=== PATIENT | female | born 1995 | race Two or more races ===

== ENCOUNTER 2017-03-01 20:59 | Emergency (ER) | payer OTHER ==
[~2017-03-01] VITALS: Ht 160 cm; Wt 68.9 kg
[2017-03-01 22:31] LABS: BASO % 0.2 % (0.0-1.0); EOS # 0.4 K/mm3 (0.0-0.50); EOS % 3.1 % (0.0-3.0); LARGE UNSTAINED CELL # 0.2 K/mm3 (0.0-0.4); LARGE UNSTAINED CELL % 1.7 % (0.0-4.0); LYMPH # 3.3 K/mm3 (1.5-6.5); LYMPH % 26.4 % (24.0-44.0); MEAN CORPUSCULAR HEMOGLOBIN 27.7 pg (27.0-33.0); MEAN CORPUSCULAR HGB CONC 32.5 g/dl (32.0-36.5); MEAN CORPUSCULAR VOLUME 85.1 fl (80.0-96.0); MONO # 0.7 K/mm3 (0.0-0.8); MONO % 5.5 % (0.0-5.0); PLATELET COUNT, AUTOMATED 267 k/mm3 (150-450); RED CELL DISTRIBUTION WIDTH 13.2 % (11.5-14.5); WHITE BLOOD COUNT 12.7 K/mm3 (4.0-10.0)
--- NOTE | 2017-03-01 23:20 | REPUSA ---
Clinical history: Pain, Cramping. Findings: Real-time transabdominal and transvaginal ultrasound images of the pelvis were obtained.. T here is a single intrauterine gestation noted. The crown rump length measures 3.0 cm. heart rat e measures 173 bpm. There is no evidence of a subchorionic hemorrhage.. An anteverted uterus is noted ,. The uterus demonstrates normal echotexture and echogenicity. The right ovary measures 3.2 x 1.7 x 2.2 cm. The left ovary measures 3.3 x 3.3 x 2.2 cm. No adnexal masses are seen. Color Doppler flow is seen within both ovaries. There is no evidence of free fluid. Impression: Single live intrauterine measuring 9 weeks 6 days, with estimated due date of 11/28/2016. No gross abnormalities appreciated.
[2017-03-01 23:35] VITALS: BP 101/59
== END 2017-03-01 23:37 | disposition home or self-care (01) ==
LOC: M ED 22:30
DX: O26.891 Other specified pregnancy related conditions, first trimester (principal); Z3A.09 9 weeks gestation of pregnancy

== ENCOUNTER → 2018-06-12 | Outpatient (REF) | payer OTHER | LOC: M SFHCLERA 14:57 | DX: R30.0 Dysuria (principal) ==

== ENCOUNTER 2019-01-03 19:33 | Outpatient (CLI) | payer OTHER ==
[~2019-01-03] VITALS: Ht 160 cm; Wt 82.2 kg
[2019-01-03 20:05] VITALS: BP 95/55
[2019-01-03 20:29] LABS: APPEARANCE, URINE HAZY (CLEAR); BACTERIA, URINE AUTO 1+ (NEGATIVE); BILIRUBIN, URINE AUTO NEGATIVE (NEGATIVE); BLOOD, URINE BLOOD NEGATIVE (NEGATIVE); COLOR, URINE YELLOW (YELLOW); GLUCOSE, URINE (UA) AUTO NEGATIVE (NEGATIVE); KETONE, URINE AUTO NEGATIVE (NEGATIVE); LEUKOCYTE ESTERASE, URINE AUTO 2+ (NEGATIVE); NITRITE, URINE AUTO NEGATIVE (NEGATIVE); PROTEIN, URINE AUTO NEGATIVE (NEGATIVE); RBC, URINE AUTO 3 /HPF (0-3); SPECIFIC GRAVITY URINE AUTO 1.005 (1.002-1.035); SQUAMOUS EPITHELIAL CELL UR AU 6 /HPF (0-6); UROBILINOGEN, URINE AUTO 0.2 mg/dL (0.0-2.0); WBC, URINE AUTO 43 /HPF (0-3)
[2019-01-03] MEDS ORDERED: LR 800 ML IV ONE (20:45)
[2019-01-03] MEDS ORDERED: LR 1,000 ML IV SCH (21:00)
[2019-01-04] MEDS ORDERED: FLUCONAZOLE 50MG TABLET PO ONE (00:15)
== END 2019-01-04 00:45 | disposition home or self-care (01) ==
LOC: M LDO 19:33
PROVIDERS: ATTEND Obstetrics & Gynecology
DX: O26.893 Other specified pregnancy related conditions, third trimester (principal); M54.5 Low back pain; R10.30 Lower abdominal pain, unspecified; O23.43 Unspecified infection of urinary tract in pregnancy, third trimester; O23.593 Infection of other part of genital tract in pregnancy, third trimester; Z3A.29 29 weeks gestation of pregnancy
CPT/HCPCS: 59025; 81001; 87081; 96374; G0378; G0463; J0690

== ENCOUNTER → 2019-01-29 | Outpatient (CLI) | payer OTHER ==
[2019-01-29 18:27] LABS: HEMOGLOBIN 7.4 g/dl (12.0-15.5); MEAN CORPUSCULAR HEMOGLOBIN 22.4 pg (27.0-33.0); MEAN CORPUSCULAR HGB CONC 28.5 g/dl (32.0-36.5); MEAN CORPUSCULAR VOLUME 78.5 fl (80.0-96.0); PLATELET COUNT, AUTOMATED 186 10^3/uL (150-450); RED BLOOD COUNT 3.31 10^6/uL (4.00-5.40)
== END ==
LOC: M SMT 12:15
PROVIDERS: ATTEND Obstetrics & Gynecology
DX: O30.043 Twin pregnancy, dichorionic/diamniotic, third trimester (principal)

== ENCOUNTER 2019-02-06 07:36 | Outpatient (CLI) | payer OTHER ==
[~2019-02-06] VITALS: Ht 160 cm; Wt 82.2 kg
[2019-02-06] VITALS (10 sets, daily range): BP systolic 107–138; BP diastolic 57–79
[2019-02-06] MEDS ORDERED: IRON SUCROSE 500 MG in NS 250 ML OVER 4 HRS IV ONE (08:00)
== END 2019-02-06 15:25 | disposition home or self-care (01) ==
LOC: M INFU 07:36
PROVIDERS: ATTEND Obstetrics & Gynecology
DX: O99.013 Anemia complicating pregnancy, third trimester (principal); Z3A.00 Weeks of gestation of pregnancy not specified
CPT/HCPCS: 96365; 96366; J1756

== ENCOUNTER 2019-02-12 17:02 | Inpatient (IN) | payer OTHER ==
[~2019-02-12] VITALS: Ht 160 cm; Wt 84.3 kg
[2019-02-12] VITALS (19 sets, daily range): BP systolic 79–116; BP diastolic 42–73
[2019-02-12] MEDS ORDERED: PRENTAB9 PO (17:24)
[2019-02-12] MEDS ORDERED: LACTATED RINGER'S 1000 ML IV STA (17:54)
[2019-02-12] MEDS ORDERED: LR 1,000 ML IV SCH (17:54)
[2019-02-12 18:51] LABS: HEMATOCRIT 30.4 % (36.0-47.0); HEMOGLOBIN 8.7 g/dl (12.0-15.5); MEAN CORPUSCULAR HEMOGLOBIN 22.6 pg (27.0-33.0); MEAN CORPUSCULAR HGB CONC 28.6 g/dl (32.0-36.5); PLATELET COUNT, AUTOMATED 237 10^3/uL (150-450); RED BLOOD COUNT 3.85 10^6/uL (4.00-5.40)
[2019-02-12] MEDS ORDERED: FENTANYL 2MCG/ML ROPIVACAINE 0.2% IN 0.9% NACL 100ML IVBAG As Ordered ONE (18:53)
--- NOTE | 2019-02-12 19:13 | HPEPDOC ---
Obstetrical History & Physical General Date of Admission Feb 12, 2019 at 17:46 Primary Care Physician: MORENO NEGRO CNM History of Present Illness Patient is a 23-year-old female who is a who is 34.6 weeks gestation with an VISH of 03/20/19 based off of her LMP and consistent with her first trimester ultrasound. She initiated care in her first trimester with Vicente Prieto CNM and transferred care to [facility] at 32 weeks gestation. Her as been complicated by di/di twin gestation and resolved IUGR of Twin A. She presents to L&D in active labor. She reports contractions and active movement. She denies leaking of fluid or vaginal bleeding. Chief Complaint: Active Labor, Other (di/di twin gestation) Age: 23 : 6 Term: 3 Pre-term: 0 Abortions: 0 Livin Care Care: Good Care Dating Final EDC: March 20, 2019 Final EDC by: LMP LMP: Jun 13, 2018 EGA at Admission: 34.6 Antepartum Course Diagnos(e)s Di/di twin gestation IUGR of Twin A resolved Height (inches): 63 Pre- weight (lbs.): 164 Admission Weight (lbs.): 193 Change in Weight (lbs.): 29 Past Medical History Past Obstetrical History #1: Gestation: 38 Type of Delivery: Spontaneous Vaginal Del. (July 2012) Sex of : Female (weight: 7 lbs 4 oz. ) Complications: No Past Obstetrical History #2: Past Obstetrical History: Multigravida Gestation: 37 Type of Delivery: Spontaneous Vaginal Del. Sex of : Male (6 lbs 7 oz) Complications: No Past Obstetrical History #3: Past Obstetrical History: Multigravida Gestation: 38.6 Type of Delivery: Spontaneous Vaginal Del. 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 , Other (history of molar ) Past Medical History Medical History Anemia: received iron infusion during asthma: has rescue inhaler and rarely uses it Surgical History: Dilatation and Curettage, Tonsilectomy Family History Significant Family History: Diabetes, Heart disease, Hypertension, Renal disease Social History Marital Status: Family situation: Spouse/partner home Psychosocial History: Anxiety (no medications; counseling as a teen) * Smoker: non-smoker Alcohol: Denies Drugs: denies Abuse Violence Screening Have you been hit/kicked/slapp: No Have you been sexually assault: No Allergies Coded Allergies: No Known Allergies (Unverified , 03/01/17) Medications Scheduled Multivitamins/ ( 27-0.8 mg) 1 Tab Tab, 1 TAB PO DAILY Physical Examination Physical Examination GENERAL: Alert and oriented times three. BREAST: . ABDOMEN: Gravid and non-tender to touch. FETUS: Is vertex (VTX) by sterile vaginal examination (SVE), fetus is vertex (VTX) by Cristian. Twin A and Twin B are cephalic by bedside ultrasound. HEART RATE: Regular rate and rhythm. LUNGS: Clear to auscultation (CTA). EXTREMITIES: No edema. No clonus. Deep tendon reflexes (DTRs) + 2. Vital Signs/I&O Vital Signs Date Time Temp Pulse Resp B/P (MAP) Pulse Ox O2 Delivery O2 Flow Rate FiO2 02/12/19 17:20 99.0 101 18 105/61 (76) Laboratory Data 24[facility] Laboratory Tests 2 02/12/19 18:16: Serology Scanned Report Hepatitis B Testing Urine Culture: No Growth Pertinent Laboratoy Data Blood Type: O+ RBC Antibody Screen: Negative HIV: Negative Hepatitis B: Negative Hepatitis C: Negative Rapid Plasma Reagin: Nonreactive Rubella: Immune Chlamydia/Gonorrhea: Negative Group B Streptococcus: Negative Glucose Tolerance Test: 132 Vaginal Examination Dilation: 4 cm Effacement: 90% Station: -1 Cervical Consistency: Soft Cervical Position: Anterior Presentation: Cephalic presentation Position: Vertex (occiput) Assessment Heart Rate (FHR): 130 (Twin A 130/ Twin B 140) Variability: Moderate Accelerations: Positive Decelerations: None Tocometer Contractions: Yes Frequency: regular, every 1-5 min. Strength: palpated as moderate Multi-drug resistant Organism: No history of MDRO Assessment/Plan Assessment Di/di twins at 34.6 weeks gestation active labor Category I FHR tracing GBS negative Plan Admit to L&D. Dr. Dillard made aware of patient being in department. Assessment done by Dr. Dillard also. OOB ad anh. Diet: NPO. Group B Streptococcus (GBS) negative. Labs and intravenous (IV) per unit protocol. Lactated Ringers (LR): Bolus 800 mL, then at 125 mL/hr. Reviewed options for vaginal delivery or section. Reviewed risk of both options and risk that after first vaginal delivery we may have to convert to section. Patient also counseled by Dr. Dillard. Patient has decided to proceed with vaginal delivery. Neonatology notified. Anesthesia consult made for epidural. Anticipate cervical change and . MORENO NEGRO CNM Feb 12, 2019 19:13
[2019-02-12] MEDS ORDERED: EPIDURAL/PCA KEYS XX PRN (21:00)
[2019-02-12] MEDS ORDERED: LACTATED RINGER'S 1000 ML IV PRN (21:00)
[2019-02-12] MEDS ORDERED: ONDANSETRON 4MG/2ML VIAL (J2405) IV PRN (21:00)
[2019-02-12] MEDS ORDERED: NALOXONE INJ 0.4 MG/1 ML VIAL (J2310) IV PRN (21:00)
[2019-02-12] MEDS ORDERED: REFRIGERATOR IV KEYS XX PRN (21:00)
[2019-02-12] MEDS ORDERED: FENTANYL/ROPIVACAINE/NACL BAG 100 ML EPIDURAL SCH (21:00)
[2019-02-12] MEDS ORDERED: ePHEDrine SULFATE 25 MG/5 ML(5MG/ML) SYRINGE IV PRN (21:00)
[2019-02-12] MEDS ORDERED: EPIDURAL COMMENT XX SCH (21:00)
[2019-02-12] MEDS ORDERED: diphenhydrAMINE INJ 50MG/ML VIAL (J1200) IV PRN (21:00)
--- NOTE | 2019-02-12 22:07 | IPNPDOC ---
Obstetrical Progress Note Date of Service Feb 12, 2019 Subjective Patient is comfortable with her epidural. Objective Vital Signs Date Time Temp Pulse Resp B/P (MAP) Pulse Ox O2 Delivery O2 Flow Rate FiO2 02/12/19 20:39 127 18 96/46 (63) 02/12/19 17:20 99.0 Assessment Variability: Moderate Accelerations: Positive Heart Rate Tracing: Category I Tocometer Contractions: Yes Frequency: regular Sterile Vaginal Examination Dilation: 5 cm Effacement (%): 90% Station: 0 Cervical Consistency: Soft Cervical Position: Anterior Postion/Presentation: Cephalic presentation Assessment and Plan EGA at Admission: 34.6 Status: Reassuring Group B Streptococcus: Negative Anticipate: Vaginal Delivery Additional Comments FHR of Twin A is 130 and Twin B is 135; moderate variability, positive accelerations, no decelerations. AROM to a moderate amount of clear fluid. Dr. Dillard in department and available for delivery. Anticipate vaginal delivery. MORENO NEGRO CNM Feb 12, 2019 22:07
[2019-02-12] MEDS ORDERED: OXYTOCIN 30 UNITS IN 0.9% NaCl 500ML IV BAG (J2590) As Ordered ONE (23:28)
[2019-02-13] VITALS (16 sets, daily range): BP systolic 99–118; BP diastolic 51–73
[2019-02-13] MEDS ORDERED: OXYTOCIN DRIP 30 UNITS in APPROPRIATE DILUENT 1 EA IV SCH (01:07)
[2019-02-13] MEDS ORDERED: METHYLERGONOVINE MALEATE 0.2 MG TAB PO PRN (01:15)
[2019-02-13] MEDS ORDERED: MEASLES,MUMPS,RUBELLA VACCINE INJ (MMR-II) (90707) SC SCH (01:15)
[2019-02-13] MEDS ORDERED: DOCUSATE SODIUM 100 MG CAP PO PRN (01:15)
[2019-02-13] MEDS ORDERED: DIBUCAINE 1% OINTMENT 30GM TOP PRN (01:15)
[2019-02-13] MEDS ORDERED: RHOGAM 300 MCG (1500 IU) INJ (J2790) IM SCH (01:15)
[2019-02-13] MEDS ORDERED: ANUSOL HC CREAM 30GM TOP PRN (01:15)
--- NOTE | 2019-02-13 01:36 | DNPDOC ---
[facility] Delivery Note Delivery Note DATE OF DELIVERY: 02/12/19 PREDELIVERY DIAGNOSIS: 34-6/7 weeks' gestation and labor. POST DELIVERY DIAGNOSIS: Delivered. PROCEDURE: Spontaneous vaginal delivery. SECURITY TEAM LEAD: Moreno Tapia CNM, WHNP and Dr. Dillard ANESTHESIA: epidural. ESTIMATED BLOOD LOSS: 200 mL. Then 750 cc . FINDINGS: Twin A: female weighting 2198 grams; 4 lbs 14 oz.; 8/9; delivery Twin B: male weighting 2310 grams; 5 lbs 1 oz; 7/9; delivery DELIVERY SUMMARY: Patient is a 23-year-old female who is now a at 34.6 weeks gestation who presented to L&D in active labor. She received an epidural for pain management. Dr. Dillard present in department and assisted with melanie cowan. Neonatology and anesthesia present during delivery. She progressed to fully dilated at 2321 and pushed to a live delivery of a living female in the NICOLA position with restitution to ROT at 2335. The anterior shoulder delivered with ease and the corpus immediately followed. The baby was active and crying with delivery. The cord was clamped x2 by Dr. Dillard and cut by the FOB. Baby was brought over to the warmer for evaluation. An ultrasound was done at the bedside by Dr. Dillard and Twin B was found to be transverse. Dr. Dillard was able to manually rotate the baby to a cephalic presentation. AROM of twin B was done at 2340 with a moderate amount of clear fluid. She pushed to a living male in the OA position with restitution to NICOLA at 2351. The anterior shoulder delivered with ease and the corpus immediately followed. The cord was clamped x2 and cut by the FOB. The baby was active and crying with delivery and brought over to the warmer. Cord blood was obtained. The placentas delivered spontaneously and intact at 2356. Uterine hemostasis was achieved via rapid infusion of IV Pitocin and fundal massage. The perineum and vagina were inspected and found to be intact. The twins were brought to the NICU due to gestation. Twin A's name is Jennifer and Twin B's name is Ismael. Both babies and mom are in stable condition. Dr. Dillard assisted in all aspects of the delivery including manual rotation of Twin B, sono at bedside, and rupture of Twin B. She received Methergine 10 mg IM and another bag of IV Pitocin for her hemorrhage. MORENO TAPIA CNM Feb 13, 2019 01:36
[2019-02-13] MEDS ORDERED: METHYLERGONOVINE MALEATE 0.2 MG/ML VIAL (J2210) As Ordered ONE (02:33)
[2019-02-13] MEDS: IBUPROFEN 800 MG TAB PO PRN ×4 (02:38→21:38)
[2019-02-13] MEDS ORDERED: METHYLERGONOVINE MALEATE 0.2 MG/ML VIAL (J2210) IM STA (05:33)
[2019-02-13] MEDS ORDERED: PERCOCET 5MG/325MG TAB PO ONE (07:15)
[2019-02-13] MEDS: PRENATAL VITAMINS CHEWABLE TABLET PO SCH (09:00)
[2019-02-13] MEDS: ACETAMINOPHEN 500 MG TAB PO PRN (17:01)
[2019-02-14 02:00] VITALS: BP 129/74
[2019-02-14] MEDS: ACETAMINOPHEN 500 MG TAB PO PRN (02:07)
[2019-02-14 06:00] VITALS: BP 119/68
[2019-02-14] MEDS: PRENATAL VITAMINS CHEWABLE TABLET PO SCH (07:29)
[2019-02-14] MEDS ORDERED: MAPA500T2 PO (08:16)
[2019-02-14] MEDS ORDERED: IBUP-1114 PO (08:16)
== END 2019-02-14 09:05 | disposition home or self-care (01) | DRG 806 ==
LOC: M LDO 17:02 → M LDI 17:46 → M OBS 02-13 07:35
PROVIDERS: ADMIT Advanced Practice Midwife; ATTEND Advanced Practice Midwife
PROC: 10E0XZZ Delivery of Products of Conception, External Approach (ICD-10-PCS; principal; 2019-02-12)
PROC: 10E0XZZ Delivery of Products of Conception, External Approach (ICD-10-PCS; 2019-02-12)
DX: O60.14X0 Preterm labor third trimester with preterm delivery third trimester, not applicable or unspecified (principal); Z37.2 Twins, both liveborn; O72.1 Other immediate postpartum hemorrhage; Z3A.34 34 weeks gestation of pregnancy; O30.043 Twin pregnancy, dichorionic/diamniotic, third trimester

== ENCOUNTER 2019-05-28 20:00 | Emergency (ER) | payer OTHER ==
[~2019-05-28] VITALS: Ht 160 cm; Wt 74.5 kg
[~2019-05-28 20:00] MED LIST: IBUP-1114 PO; MAPA500T2 PO; PRENTAB9 PO
[2019-05-28 20:38] LABS: HEMATOCRIT 38.7 % (36.0-47.0); HEMOGLOBIN 12.2 g/dl (12.0-15.5); MEAN CORPUSCULAR HEMOGLOBIN 26.3 pg (27.0-33.0); MEAN CORPUSCULAR HGB CONC 31.5 g/dl (32.0-36.5); MEAN CORPUSCULAR VOLUME 83.4 fl (80.0-96.0); PLATELET COUNT, AUTOMATED 346 10^3/uL (150-450); RED BLOOD COUNT 4.64 10^6/uL (4.00-5.40); WHITE BLOOD COUNT 12.3 10^3/uL (4.0-10.0)
--- NOTE | 2019-05-28 22:43 | REPVR ---
EXAM: US Left Breast Limited, Abscess Evaluation EXAM DATE/TIME: 05/28/2019 9:03 PM CLINICAL HISTORY: 23 years old, female; Mass, lump, or swelling and nipple discharge (milk-like); Left; Additional info: Lump/nipple drainage. Status post delivery of twins in February. Not breast feeding. TECHNIQUE: Imaging protocol: Left breast ultrasound. Exam limited to the quadrant(s) of clinical concern. Exam focused on the search and evaluation for abscess. Scanning performed at the 1-3 o'clock positions and in the subareolar region. COMPARISON: No relevant prior studies available. FINDINGS: US breast: No visible abscess or mass. Multiple mildly dilated ducts in the subareolar region. IMPRESSION: 1. No evidence of abscess. 2. Dilated subareolar ducts, which could be due to . Recommend clinical management with further assessment as indicated if symptoms persist. Electronically signed by: Herman Lester On 05/28/2019 22:42:44 PM
[2019-05-28 23:24] VITALS: BP 124/96
--- NOTE | 2019-05-30 13:45 | ED PDOC ---
Post-Departure Follow-Up dr barrett faxed formal report of breast us for fu Alexandria Barahona MD May 30, 2019 13:45
== END 2019-05-28 23:25 | disposition home or self-care (01) ==
LOC: M ED 20:00
DX: N61.0 Mastitis without abscess (principal); J45.909 Unspecified asthma, uncomplicated

== ENCOUNTER 2019-06-07 13:46 | Emergency (ER) | payer OTHER ==
[~2019-06-07] VITALS: Ht 160 cm; Wt 78.0 kg
[2019-06-07 14:59] LABS: BASO % 0.3 % (0.0-1.0); EOS # 0.4 10^3/uL (0.0-0.50); EOS % 3.5 % (0.0-3.0); HEMATOCRIT 37.3 % (36.0-47.0); HEMOGLOBIN 11.5 g/dl (12.0-15.5); LYMPH # 2.9 10^3/uL (1.5-6.5); LYMPH % 27.9 % (24.0-44.0); MEAN CORPUSCULAR HEMOGLOBIN 25.6 pg (27.0-33.0); MEAN CORPUSCULAR HGB CONC 30.8 g/dl (32.0-36.5); MEAN CORPUSCULAR VOLUME 83.1 fl (80.0-96.0); MONO # 0.7 10^3/uL (0.0-0.8); MONO % 7.1 % (0.0-5.0); NEUTROPHILS # 6.3 10^3/uL (1.8-7.7); NEUTROPHILS % 60.9 % (36.0-66.0); PLATELET COUNT, AUTOMATED 343 10^3/uL (150-450); RED BLOOD COUNT 4.49 10^6/uL (4.00-5.40); WHITE BLOOD COUNT 10.3 10^3/uL (4.0-10.0)
[2019-06-07] MEDS ORDERED: EXPOSURE KIT-ADULT 7 DAY SUPPLY PO ONE (15:15)
[2019-06-07 15:18] LABS: ALBUMIN 3.9 GM/DL (3.2-5.2); ALT/SGPT 17 U/L (12-78); BILIRUBIN,TOTAL 0.2 MG/DL (0.2-1.0); BLOOD UREA NITROGEN 14 MG/DL (7-18); CARBON DIOXIDE LEVEL 29 MEQ/L (21-32); CHLORIDE LEVEL 106 MEQ/L (98-107); CREATININE FOR GFR 0.85 MG/DL (0.55-1.30); GLOMERULAR FILTRATION RATE > 60.0 (>60); GLUCOSE, FASTING 90 MG/DL (70-100); POTASSIUM SERUM 4.1 MEQ/L (3.5-5.1); SODIUM LEVEL 140 MEQ/L (136-145); TOTAL PROTEIN 7.4 GM/DL (6.4-8.2)
[2019-06-07] MEDS ORDERED: RALT40TA PO (15:29)
[2019-06-07] MEDS ORDERED: TRUVTAB PO (15:29)
[2019-06-07 15:59] VITALS: BP 119/90
[2019-06-08 10:01] LABS: HEPATITIS B SURFACE ANTIBODY NEGATIVE (POSITIVE)
[2019-06-08 10:12] LABS: HEPATITIS B SURFACE ANTIGEN NEGATIVE (NEGATIVE)
[2019-06-08 10:41] LABS: HEPATITIS C VIRUS ABY INDEX 0.1 INDEX (<0.8)
== END 2019-06-07 16:01 | disposition home or self-care (01) ==
LOC: M ED 13:46
DX: Z77.21 Contact with and (suspected) exposure to potentially hazardous body fluids (principal); S61.431A Puncture wound without foreign body of right hand, initial encounter; W26.8XXA Contact with other sharp object(s), not elsewhere classified, initial encounter; Y92.234 Operating room of hospital as the place of occurrence of the external cause; Y99.0 Civilian activity done for income or pay

== ENCOUNTER → 2019-08-31 | Outpatient (REF) | payer OTHER ==
[~2019-08-31] MED LIST changes: +RALT40TA PO; +TRUVTAB PO
[2019-08-31 22:49] LABS: CHLAMYDIA DNA AMPLIFICATION NEGATIVE (NEGATIVE); GC DNA AMPLIFICATION NEGATIVE (NEGATIVE)
== END ==
LOC: M SFHCLERA 15:43
PROVIDERS: ATTEND Physician Assistant
DX: R30.0 Dysuria (principal); N30.01 Acute cystitis with hematuria

== ENCOUNTER → 2019-09-04 | Outpatient (CLI) | payer OTHER | LOC: M OUTALCOH 08:20 | PROVIDERS: ATTEND Psychiatry & Neurology Psychiatry | DX: Z13.39 Encounter for screening examination for other mental health and behavioral disorders (principal); F10.10 Alcohol abuse, uncomplicated ==

== ENCOUNTER → 2020-01-17 | Outpatient (CLI) | payer OTHER ==
--- NOTE | 2020-01-17 19:12 | REP ---
FIRST TRIMESTER ULTRASOUND: Real-time sonographic evaluation of the gravid uterus performed. There is a single living intrauterine gestation, estimated gestational age 6 weeks 6 days based on crown rump length of 9 mm, EDC 09/05/2020. heart rate is 133 beats per minute. There are two areas of subchorionic hemorrhage, left measuring 5 x 7 x 4 mm and inferiorly measuring 19 x 9 x 8 mm. I suspect a hemorrhagic corpus luteum in the left ovary 2 cm in diameter. Electronically Signed by Dean Mcmanus MD 01/18/2020 05:11 P
== END ==
LOC: M RAD 17:33
PROVIDERS: ATTEND Physician Assistant
DX: Z32.01 Encounter for pregnancy test, result positive (principal)